=== PATIENT | male | born 1950 | race Caucasian/White ===

== ENCOUNTER 2025-04-10 08:34 | Inpatient (IN) | payer MEDICARE, OTHER, SELFPAY ==
[2025-04-10] VITALS (16 sets, daily range): BP systolic 125–176; BP diastolic 75–103; PULSE 68–95; RESP 13–16; TEMP 36.1–36.7; O2SAT 91–97; BMI 27.7
--- NOTE | 2025-04-10 08:49 | CT_ITS ---
PROCEDURE: ABDOMEN/PELVIS W IV CONT ONLY 04/10/2025 REASON FOR EXAM: RLQ ABDOMINAL PAIN TECHNIQUE: Procedure Code: [id number] Modality: CT Procedure: ABDOMEN/PELVIS W IV CONT ONLY Coronal and Sagittal reconstruction series were provided. CONTRAST: Isovue 300 VOLUME: 100 mL One or more dose reduction techniques were used (e.g., Automated exposure control, adjustment of the mA and/or kV according to patient size, use of iterative reconstruction technique. RADIATION DOSE SUMMARY: CTDlvol: 17.3 mGy DLP: 953.17 mGycm COMPARISON: None FINDINGS: Lung bases: The lung bases are clear. No coronary artery calcification is seen. Liver: Multiple hepatic cysts are seen. The largest cyst measures 9.3 cm by 9.7 cm. This is in the lower portion of the right lobe of the liver. Gallbladder: Unremarkable. Spleen: Scattered calcified granulomas. The spleen is nonenlarged. Pancreas: Normal size without evidence of mass surrounding inflammation or ductal dilation. Adrenals: Unremarkable Kidneys: Normal renal sizes. No hydronephrosis. Bladder: Unremarkable. Prosthetic hypertrophy. Calcification of the prostate with indentation of the bladder base. Bowel: Dilated small bowel loops. Bowel loops are fluid-filled due to a hernia in the right inguinal canal containing small bowel loops. The stomach is fluid-filled. Appendix: Unremarkable Lymph nodes: Unremarkable. Vasculature: Mild diffuse atherosclerotic calcifications are noted. Peritoneum / Retroperitoneum: Unremarkable Bones: Degenerative changes of the spine. CT/Abdomen/Pelvis W IV Cont ONLY IMPRESSION: Small-bowel obstruction due to right inguinal hernia. Hepatic cysts. Prosthetic enlargement with the prostatic calcification. Reading Location: [place] [address]
--- NOTE | 2025-04-10 08:51 | ED.VIS.GI ---
HPI HPI - GI History of Present Illness Chief Complaint: Abd Pain Detail of Chief Complaint: Abdominal pain Informant: patient Narrative Narrative: Patient presents with right-sided lower abdomen pain that started 3 days ago. She has had nausea and few bouts of vomiting yesterday. Rates the pain 5-7 out of 10. Denies fever. Denies blood in the stool or black tarry stool. Tells me he had a right inguinal hernia repair about 15 years ago with mesh. Otherwise has no medical history. Patient not anticoagulated PFSH PFSH Home Medications Medication Instructions Recorded Last Taken Type acetaminophen 325 mg tablet (Pain 650 mg PO Q4H PRN fever or pain 04/10/25 04/09/25 History Relief (acetaminophen)) ibuprofen 200 mg tablet (Motrin IB) 400 mg PO Q8H PRN fever or pain 04/10/25 Unknown History Allergy/AdvReac Type Severity Reaction Status Date / Time No Known Allergies Allergy Verified 04/10/25 08:36 ROS ROS ED Review of Systems ROS Unobtainable: other Constitutional Constitutional ED: Reports lethargy; Denies chills, fever(s), sweats or weight loss Eyes Eyes: Denies blurry vision, change in vision or diplopia ENT ENT ED: Denies rhinorrhea or sore throat Cardiovascular Cardiovascular: Denies chest pain, orthopnea or racing heartbeat Respiratory/Chest Respiratory/Chest: Denies cough, dyspnea, dyspnea on exertion, orthopnea or sputum Gastrointestinal Gastrointestinal: Reports abdominal pain, nausea and vomiting; Denies diarrhea Genitourinary Genitourinary ED: Denies dysuria, hematuria or urinary frequency Musculoskeletal Musculoskeletal: Denies arthralgias, back pain, myalgias or neck pain Integumentary Denies abscess, Abrasions or rash Neurologic Neurologic: Denies headache(s) or weakness Psychiatric Psychiatric: Denies anxiety, depression or suicidal thoughts Endocrine Endocrinology: Denies polydipsia, polyphagia or polyuria Hematologic/Lymphatic Hematologic/Lymphatic: Denies easy bleeding, easy bruising or lymphadenopathy Allergic/Immunologic Allergic/Immunologic ED: Denies mouth swelling, tongue swelling or urticaria EXAM Physical Exam Const Vital Signs: 04/10/25 08:35 Temperature 98.1 F Temperature Source Oral Pulse Rate 95 Respiratory Rate 16 Blood Pressure 125/84 H Blood Pressure Mean 97 Pulse Ox 96 Oxygen Delivery Method Room Air Positive well nourished and well developed General Appearance ED: well developed and NAD HEENT Reports TM's clear and moist mucous membranes normocephalic and atraumatic; Negative for trauma or tenderness Tympanic Membrane ED: Yes TM's clear Eyes PERRL and EOMs intact bilaterally General Eye ED: Negative for pale conjunctiva or scleral icterus Neck no lymphadenopathy, supple and no JVD General: Negative for tenderness Chest Wall inspection of chest normal and palpation of chest normal Chest: Negative for tenderness Resp normal respiratory effort and clear to auscultation bilaterally Effort and Inspection: Negative for respiratory distress or pain with movement Auscultation: Negative for rhonchi, wheezes or diminished lung sounds Cardio regular rate, regular rhythm, S1 normal heart sound, S2 normal heart sound and no murmurs Peripheral Pulses: pulses 2+ throughout GI normal to inspection, nondistended, normoactive bowel sounds, soft to palpation, non-distended and no masses GI Narrative: Patient has fullness to the right inguinal area that is very tender to palpation. No erythema or warmth noted. No discoloration to the skin noted. Testicles are nontender. Back/Spine no CVA tenderness and no thoracic nor lumbar tenderness Extremity normal to inspection General Extremety ED: Negative for edema General Extremity: Negative for edema Neuro oriented x3, CN's II-XII intact bilaterally, no sensory deficits noted and gait normal Sensorium / Orientation: awake, alert, oriented to person, oriented to place and oriented to time Motor Exam: strength 5/5 throughout and strength abnormal Psych mental status grossly normal Skin no rashes or lesions noted and no wounds MDM MDM MDM Narrative Medical decision making narrative: Patient presents with right-sided abdominal pain x 3 days. He has what appears to be fullness in the right normal area with concern for incarcerated little hernia. Initially unable to reduce the mass. IV line established. Was marked with morphine and Zofran. CBC with differential count 13.5 with hemoglobin of 18.3 and plate count of 227. Chemistries unremarkable. Lactate elevated 2.7. CT with IV contrast showed incarcerated right inguinal hernia containing small bowel with small bowel obstruction. Discussed case with Dr. Cruz who is the general surgeon on-call who will evaluate patient. Patient will likely require surgical intervention. Lab Data Attestation: I reviewed the patient's lab results. Labs: Laboratory Results - last 24 hr 04/10/25 04/10/25 08:45 08:55 WBC 13.5 H RBC 5.69 Hgb 18.3 H* Hct 51.2 MCV 90.0 MCH 32.2 H MCHC 35.7 RDW Std Deviation 40.7 RDW Coeff of Madhu 12.5 Plt Count 227 MPV 11.4 Immature Gran % (Auto) 0.400 Neut % (Auto) 74.3 H Lymph % (Auto) 14.8 L [place] % (Auto) 9.8 Eos % (Auto) 0.3 Baso % (Auto) 0.4 Absolute Neuts (auto) 10.0 H Absolute Lymphs (auto) 1.99 Nucleated RBC % 0 Sodium 136 Potassium 4.4 Chloride 97 L Carbon Dioxide 24.0 Anion Gap 15 BUN 24 H Creatinine 1.20 Est GFR (MDRD) Non-Af 64 BUN/Creatinine Ratio 19.8 Glucose 153 H Lactic Acid 2.7 H* Calcium 10.4 Radiography Diagnostic Testing: Clinical Impression(s) from Imaging Studies Abdomen/Pelvis CT 04/10/25 08:49 IMPRESSION: Small-bowel obstruction due to right inguinal hernia. Hepatic cysts. Prosthetic enlargement with the prostatic calcification. Reading Location: [facility] Discharge Plan Dx/Rx/DC Orders Clinical Impression: SBO (small bowel obstruction), Incarcerated right inguinal hernia Disposition Disposition: Acute Care Hospital [facility]
[2025-04-10] MEDS: 0.9% Normal Saline (1000mL) 1,000 ML 125 ML IV (09:02)
[2025-04-10 09:05] LABS: Hematocrit 51.2 % (40-54); Immature Granulocytes Count 0.060 X10^3/uL (0.0-0.0); Mean Corp Hgb Conc 35.7 g/dL (32-36); Mean Corpuscular Volume 90.0 fL (80-94); Mean Platelet Vol. 11.4 fl (6.2-12.0); NRBC Flagged by Analyzer 0 % (0-5); Platelet Count 227 K/mm3 (150-450); RBC Distribution Width CV 12.5 % (11.6-14.6); RBC Distribution Width SD 40.7 fl (35.1-43.9); Red Blood Count 5.69 M/mm3 (4.6-6.2); White Blood Count 13.5 K/mm3 (4.4-11.0)
[2025-04-10 09:08] LABS: Hemoglobin 18.3 g/dL (13.0-16.5)
[2025-04-10 09:27] LABS: Anion Gap 15 (5-15); BUN 24 mg/dL (4-19); BUN/Creat Ratio 19.8 RATIO (10-20); Calcium,Total 10.4 mg/dL (7.6-11.0); Carbon Dioxide 24.0 mmol/L (21.0-32.0); Chloride 97 mmol/L (98-108); Glucose 153 mg/dL (70-99); Potassium 4.4 mmol/L (3.3-5.1)
--- NOTE | 2025-04-10 10:00 | HP.PCM.SX_ITS ---
HPI - General HPI Narrative BELA TURK, is a 74 M who presents with abdominal pain. Patient has been having abdominal pain and vomiting since Thursday. Patient notes right groin pain. It radiates down his leg. Patient does note that he is nauseous currently. [facility] Home Medications Medication Instructions Recorded Last Taken Type acetaminophen 325 mg tablet (Pain 650 mg PO Q4H PRN fe marcin or pain 04/10/25 04/09/25 History Relief (acetaminophen)) ibuprofen 200 mg tablet (Motrin IB) 400 mg PO Q8H PRN fever or pain 04/10/25 Unknown History Allergy/AdvReac Type Severity Reaction Status Date / Time No Known Allergies Allergy Verified 04/10/25 08:36 ROS Constitutional Constitutional: Reports anorexia; Denies fatigue or fever(s) Eyes Eyes: Denies blurry vision ENT HEENT: Denies abnormal hearing Cardiovascular Cardiovascular: Denies chest pain Respiratory/Chest Respiratory/Chest: Denies cough or dyspnea Gastrointestinal Gastrointestinal: Reports abdominal pain, nausea and vomiting; Denies constipation Genitourinary Genitourinary: Denies change in urinary stream Musculoskeletal Musculoskeletal: Denies abnormal gait Integumentary Integumentary: Denies jaundice Neurologic Neurologic: Denies abnormal gait Psychiatric Psychiatric: Denies anxiety Vital Signs Vital Signs Vital Signs: 04/10/25 08:35 Temperature 98.1 F Temperature Source Oral Pulse Rate 95 Respiratory Rate 16 Blood Pressure 125/84 H Blood Pressure Mean 97 Pulse Ox 96 Oxygen Delivery Method Room Air Physical Exam Const oriented x3 and no apparent distress Resp normal respiratory effort GI soft to palpation Palpation: tender Positive for other Results Lab / Micro Data 04/10/25 08:45 04/10/25 08:45 Labs: Laboratory Results - last 24 hr 04/10/25 08:45: WBC 13.5 H, RBC 5.69, Hgb 18.3 H*, Hct 51.2, MCV 90.0, MCH 32.2 H, MCHC 35.7, RDW Std Deviation 40.7, RDW Coeff of Madhu 12.5, Plt Count 227, MPV 11.4, Immature Gran % (Auto) 0.400, Neut % (Auto) 74.3 H, Lymph % (Auto) 14.8 L, [place] % (Auto) 9.8, Eos % (Auto) 0.3, Baso % (Auto) 0.4, Absolute Neuts (auto) 10.0 H, Absolute Lymphs (auto) 1.99, Nucleated RBC % 0, Sodium 136, Potassium 4.4, Chloride 97 L, Carbon Dioxide 24.0, Anion Gap 15, BUN 24 H, Creatinine 1.20, Est GFR (MDRD) Non-Af 64, BUN/Creatinine Ratio 19.8, Glucose 153 H, Calcium 10.4 04/10/25 08:55: Lactic Acid 2.7 H* Imaging Radiology Impression Abdomen/Pelvis CT 04/10/25 08:49 IMPRESSION: Small-bowel obstruction due to right inguinal hernia. Hepatic cysts. Prosthetic enlargement with the prostatic calcification. Reading Location: [facility] Assessment & Plan Assessment/Plan (1) Incarcerated right inguinal hernia: (2) SBO (small bowel obstruction): PLAN: Plan The patient has an incarcerated right inguinal hernia causing small bowel obstruction. I discussed this with him in detail. I discussed robotic assisted laparoscopic repair as the patient has had open repair in the past. I discussed the procedure in detail as well as the risks including but not limited to bleeding, infection, injury to other organ such as the bowel, bladder, blood supply to the testicle. I also discussed the possibility of having to open and perform a bowel resection if there is any necrosis of the bowel. I recommend the patient have an NG tube placed for decompression before surgery. Abilio Cruz MD Pager: [facility] [address] [place] [address], [address] [place] [address] Office:
[2025-04-10 10:22] LABS: Mucous, Urine 0 SEEN /hpf (<or=2+); Red Blood Cells-Urine 0 SEEN /hpf (0-5); Squamous Epithelial Cells - UA 0 SEEN /hpf (0-5)
[2025-04-10 10:36] LABS: Color, Urine Yellow (Yellow); Glucose, Dipstick Normal (Normal); Ketone-Dipstick 15 mg/dl (Negative); Leukocyte Esterase-Dipstick 25 /ul (Negative); Nitrite-Dipstick Negative (Negative); Occult Blood-Urine 10 /ul (Negative); Protein-Dipstick 30 mg/dl (Negative); Specific Gravity, Urine 1.015 (1.002-1.030); Urine Bilirubin Dipstick Negative (Negative)
--- NOTE | 2025-04-10 10:50 | RAD_ITS ---
PROCEDURE: ABDOMEN SINGLE VIEW (PORTABLE) 04/10/2025 REASON FOR EXAM: NG PLACEMENT TECHNIQUE: Procedure Code: RADABD_P Modality: DX Procedure: ABDOMEN SINGLE VIEW (PORTABLE) COMPARISON: None FINDINGS: Bowel gas: Air-filled loops of small and large bowel throughout all 4 quadrants of the abdomen consistent with ileus. Calcifications: No suspicious calcifications noted. However, 1 could be obscured by the overlying bowel gas and stool Bones: Degenerative bony changes Other: NG tube tip in the body of the stomach RAD/Abdomen Single View (Portable) IMPRESSION: NG tube tip in the body of the stomach Ileus Reading Location: [id number]
--- NOTE | 2025-04-10 11:15 | COL_PTH ---
PATIENT: BELA TURK LOC: [facility] U#:[id number] AGE/SX: 74/M ROOM: MN325 RE04/10/[address]: Dr. Abilio Cruz MD : 1950 BED: 1 DIS: 04/14/2025 SPEC #: [id number] RECD: 04/10/25 14:16 STATUS: GILLIAN BRANCHRocco #: [id number] RUSSELL: 04/10/25 11:[address]: Abilio Cruz DEPT: SURGICAL PATHOLOGY RECD BY: Butch De Anda ENTERED: 04/10/25 14:25 SP TYPE: COLON OTHR DR: No Primary Care Phys Tissues: A - Colon, NOS Procedures: Surgery Specimen Level V HEADER OPERATION: Laparoscopic robotic inguinal hernia, bowel resection PRE-OP DIAGNOSIS: Incarcerated right inguinal hernia, small bowel obstruction TISSUE SUBMITTED: A- Small bowel segment MICROSCOPIC DIAGNOSIS A. 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 - Serosal adhesions with acute serositis. - Focal mucosal necrosis of end resection margins, with focal prominent mucosal lymphoid tissue IHCs 04/19 pm MICROSCOPIC DESCRIPTION Slides are reviewed. All matched controls reacted appropriately. These tests were developed and their performance characteristics determined by [facility]. They may not have been cleared or approved by the U.S. Food and Drug Administration. The FDA has determined that such clearance or approval is not necessary. The above immunohistochemical markers are viewed by the Pathologist. GROSS DESCRIPTION A. Received in formalin labeled with the patient's name and date of . Designated as "small bowel segment" is an 8.8 cm in length by 2.5 cm in diameter page-pink to red unoriented segment of bowel with focal dense adhesions and an area of stricture, 1.5 cm in diameter, located 2.8 cm from the closest stapled margin; the stapled margins are differentially inked (black/orange). Opening reveals minimal amount of yellow-green, somewhat tenacious material within the lumen. The bowel mucosa is page and granular with a central, circumferential area of submucosal congestion. Definitive mass lesions are not grossly appreciated. Also received within the container is a 7.8 x 1.3 x 7 cm focally stapled, irregular portion of mucosa and 2 stapled portions of mucosa, 0.8 cm and 1.2 cm in length by 1.0-1.4 cm in diameter. The stapled portions of mucosa are differentially inked (green/blue). Electrocardiograph Technician sections are submitted A1: Stapled margins, shaved, charter representative (black/orange)A2: Stricture A3: Serosal adhesionsA4: Submucosal congestionA5: Irregular portion of mucosaA6: Stapled portions of mucosa, shaved, charter representative (blue/green) [place] 04/10/2025 CPT:78149,04342, [id number]
--- NOTE | 2025-04-10 11:20 | PRE.ANES_ITS ---
ASA Classification* ASA Classification ASA Classification: 2 (Denies all PMHx. HTNsive on my assessment. Incarcerated (R) hernia ) Assessment & Plan Anesthesia* Anesthesia Assessment Anesthesia Assessment: Discussed sedation and/or anesthesia options, risks, benefits, and alternatives with patient/parents/legal guardian/POA. Questions invited. The patient/parents/legal guardian/POA seems to understand and agrees to proceed with anesthesia plan. Reviewed the physical assessment, medical history, allergy history and patient home medications list prior to surgery/procedure/anesthetic and documented any changes. Performed airway and anesthesia risk assessments. Anesthesia Type Anesthesia Type: General History Source History Obtained from:: Patient and Chart Anesthesia Focused Assessment* Temperature: 98.1 F Pulse Rate: 77 Blood Pressure: 159/101 Respiratory Rate: 13 Pulse Ox: 93 Oxygen Delivery Method: Room Air Airway Assessment Mouth opens: >3 cm Mallampati Score: II Teeth Condition: Intact Neck Range of motion (ROM): Full ROM Labs Anesthesia Preop lab: CBC WBC, (4.4-11.0) 13.5 K/mm3 H Today, 08:45 RBC, (4.6-6.2) 5.69 M/mm3 Today, 08:45 Hgb, (13.0-16.5) 18.3 g/dL H* Today, 08:45 Hct, (40-54) 51.2 % Today, 08:45 Plt Count, (150-450) 227 K/mm3 Today, 08:45 CHEMISTRY Potassium, (3.3-5.1) 4.4 mmol/L Today, 08:45 Sodium, (133-145) 136 mmol/L Today, 08:45 BUN, (4-19) 24 mg/dL H Today, 08:45 Creatinine, (0.70-1.20) 1.20 mg/dL Today, 08:45 Glucose, (70-99) 153 mg/dL H Today, 08:45 COAG Pre-Assessment Diagnosis/Proposed Procedure Planned Operative Procedure(s): hernia repair; see surgeon note Anesthesia History Anesthesia History - bevel face stoner and polisher: Anesthesia History - bevel face stoner and polisher Hx Hospitalization Any Problems With Anesthesia Cholinesterase deficiency You/Your Family Experience fever (hyperthermia) with Relationship Recent Exposure to Contagious Disease Does patient have nerve stimulator Patient instructed to have device shut off --Does patient have Pacemaker or ICD? When Was Last Pacemaker Check QUESTION #4 FULL TEXT: You/Your Family Experience fever (hyperthermia) with Anesthesia Last Oral Intake Last Oral intake: Last Oral Intake NPO since Meds taken in AM with sips of water? Meds patient instructed to take am of surgery PONV PONV - bevel face stoner and polisher: PONV - bevel face stoner and polisher Female HX of Motion Sickness HX of N/V After Surgery Non-Smoker Duration of Surgery greater than 60 minutes Number of Risk Factors PONV Score Height & Weight Height & Weight: Anesthesia: Height & Weight Height 5 ft 8 in 04/10/25 08:35 Weight: 82.8 kg 04/10/25 10:08 Body Mass Index (BMI) 27.7 04/10/25 10:08 Respiratory Assessment Respiratory Assessment - bevel face stoner and polisher: Respiratory Tract Infection Hx - bevel face stoner and polisher Hx Respiratory Tract Infection STOP Sleep Apnea STOP Sleep Apnea - bevel face stoner and polisher: STOP Sleep Apnea - bevel face stoner and polisher Hx Hypertension Hx Sleep Apnea CPAP BIPAP Do you snore loudly (louder than talking or can be heard Do you often feel tired/ fatigued/ sleepy during daytime? Has anyone observed you stop breathing during sleep? STOP Results QUESTION #5 FULL TEXT : Do you snore loudly (louder than talking or can be heard through closed doors)? Tobacco Use History Tobacco Use History - bevel face stoner and polisher: Tobacco Use History - bevel face stoner and polisher Tobacco Use Smoking Status Never smoker 04/10/25 10:09 Hx Tobacco Use Years Smoking Packs Smoked per Day Smoking Cessation Date was within the last 15 years Hx Smoking Cessation Date Hx Smoking Cessation Counseling Hematologic Medial History Hematologic Hx - bevel face stoner and polisher: Hematologic Medical Hx - mold hoister Hx of Blood Transfusion Hx of Transfusion in last 3 Months Date of Last Transfusion (if within last 3 months) Ever experience any problems with transfusion(s)? Specify any problems Hx of Preganancy in last 3 Months Nurse Filling Out Transfusion & Questions: Date: Time: Patient unable to answer at this time (ie. confused, unrespo /Reproduction History /Reproductive History - bevel face stoner and polisher: /Reproductive Hx- bevel face stoner and polisher Hx Now Gestational Age (in weeks): EDC: Hx Hx Para Hx Section SAB Does the father of the baby or his family experience fever w Father of the baby Malignant Hypertension history comment Active Medications Active Medications: Current Medications Generic Name Dose Route Start Last Admin Trade Name Freq PRN Reason Stop Dose Admin Sodium Chloride 1,000 mls @ 125 mls/hr 04/10/25 08:50 04/10/25 09:02 IV 125 mls/hr .Q8H WOOD Administration Cefotetan Disodium 2 gm/ 100 mls @ 200 mls/hr 04/10/25 11:11 Sodium Chloride IV 04/10/25 11:40 INTRAOP ONE Lactated Ringer's 1,000 mls @ 15 mls/hr 04/10/25 11:15 IV .Q48H WOOD PFSH Home Medications Medication Instructions Recorded Last Taken Type acetaminophen 325 mg tablet (Pain 650 mg PO Q4H PRN fe marcin or pain 04/10/25 04/09/25 History Relief (acetaminophen)) ibuprofen 200 mg tablet (Motrin IB) 400 mg PO Q8H PRN fever or pain 04/10/25 Unknown History Allergy/AdvReac Type Severity Reaction Status Date / Time No Known Allergies Allergy Verified 04/10/25 08:36 Social History Smoking Status: Never smoker Review of Systems (Anesthesia) ROS Narrative System reviewed and no additional complaints, except as documented. Physical Exam Const alert, oriented x3 and average body habitus Resp normal respiratory effort, normal air movement and clear to auscultation bilaterally Cardio regular rate, regular rhythm, no murmurs and diaphoretic
[2025-04-10] MEDS: Lidocaine 1% (5 ml sdv) 5 ML Vial IV (12:17)
[2025-04-10] MEDS: fentaNYL 100 MCG/2 ML Ampul IV (12:18)
[2025-04-10 13:03] LABS: Reflex Lactate? Y
--- NOTE | 2025-04-10 13:36 | OP.PCM_ITS ---
Operative Report (Standard) Operative Information Date of Procedure: 04/10/25 Pre-Operative Diagnosis: Incarcerated right inguinal hernia Post-Operative Diagnosis: Strangulated right inguinal hernia with bowel necrosis Surgery/Procedure Performed: Exploratory laparoscopy converted to open with small bowel resection and anastomosis assistant manager pt: Yes Journeyman Lineman: Emma Li Tasks completed by machine operator assistant: Opening & closing and Retracting Type of Anesthesia: General/Regional RN Documented Start/Stop Times: Operation Date: 04/10/25 11:15 Case Time Into Pre-Op 04/10/25 11:09 Out of Pre-Op 04/10/25 12:12 Anesthesia Start 04/10/25 12:15 Into Room 04/10/25 12:15 Procedure Start 04/10/25 12:38 Procedure End 04/10/25 13:35 Procedure Start Time: 12:38 Procedure Stop Time: 13:35 Select all DRAINS/GRAFTS/IMPLANTS that apply: None Estimated Blood Loss: 10 Specimen collected: Yes Description of specimen(s) removed: Small bowel segment Description of surgery: Patient was brought to the operating room and general anesthesia was induced. The abdomen was prepped and draped in usual sterile fashion. A midline incision was made superior to the umbilicus and deepened to the fascia which was elevated and incised. A 12 mm port was placed into the abdomen and the abdomen is insufflated to 15 mmHg. Patient was placed in Trendelenburg position. The hernia was reduced. The loop of small bowel that was reduced from the hernia appeared necrotic. It was at this point we decided not to repair the hernia for fear of contamination of the mesh and to only resect the small bowel. The midline incision was lengthened inferiorly and a wound protector was placed. The small bowel was delivered through the incision. The small bowel was divided proximal and distal to the ischemic area. The LigaSure impact was used to take down the mesentery. Next the corner of each staple line was removed and the GONZÁLEZ 75 stapler was used to create an anastomosis in a [id number] functional end-to-end fashion. The staple line appeared hemostatic. The enterostomy was closed with a 60 TX stapler. There was good hemostasis. A crotch stitch was placed with 3-0 silk. The bowel was returned to the abdomen and was irrigated and suctioned. The fascia was closed with a #1 PDS suture starting from the top and bottom meeting in the middle. The skin was closed with interrupted 4-0 Monocryl suture. Steri-Strips and bandages were applied. Patient was taken the PACU in stable condition and tolerated the procedure well. Surgical Findings: Small bowel obstruction and ischemia due to right inguinal hernia. Patient will need subsequent right inguinal hernia repair with mesh Complications Complications: No Admit VTE Documentation VTE Mechan Device Prophylaxis: SCD's
[2025-04-10] MEDS: Lactated Ringers 1,000 ML 15 ML IV (14:04)
--- NOTE | 2025-04-10 14:59 | PCM.POST.ANE ---
Anesthesia: Postop Eval I Current Vital Signs Temperature: 97.2 F Pulse Rate: 68 Blood Pressure: 164/103 Respiratory Rate: 16 Pulse Ox: 91 Oxygen Delivery Method: Room Air Assessment Airway patent: Yes Spontaneous unlabored respirations: Yes Mental status: Awake and Calm nausea: No Vomiting: No Anesthesia Complication: No Fluid Hydration Crystalloid volume administer (ml): 800 Total IV fluid infused: 800 Progress Note Anesthesia document: Postop Eval 1 completed: Yes
[2025-04-10] MEDS: 0.9% Normal Saline (1000mL) 1,000 ML 100 ML IV (15:50)
--- NOTE | 2025-04-10 16:39 | POSTOPAN2_ITS ---
Anesthesia Postop Eval I Sum Postop Eval Completion status Anesthesia document: Postop Eval 1 completed: Yes Anesthesia Postop Eval I Summary Anesthesia Postop Eval I Summary: Anesthesia Postop Eval I: Assessment Summary Airway patent Yes 04/10/25 15:01 TRAIN OPERATIONS [email or web address] Spontaneous unlabored Yes 04/10/25 15:01 TRAIN OPERATIONS MANAGER.[email or web address] respirations Mental status Awake,Calm 04/10/25 15:01 TRAIN OPERATIONS MANAGER.JDEF nausea No 04/10/25 15:01 TRAIN OPERATIONS MANAGER.[email or web address] Vomiting No 04/10/25 15:01 TRAIN OPERATIONS MANAGER.[email or web address] Anesthesia Postop Eval I: Fluid Summary Crystalloid volume administer 800 04/10/25 15:01 TRAIN OPERATIONS MANAGER.JDEF (ml) Colloids volume administered ( ml) Blood Product volume administered (ml) Total IV fluid infused 800 04/10/25 15:01 TRAIN OPERATIONS MANAGER.JDEF Anesthesia Postop Eval I: Summary Notes Anesthesia Complication No 04/10/25 15:01 TRAIN OPERATIONS MANAGER.JDEF Anesthesia Complication Comment: Post-operative progress note Anesthesia: Postop Eval II Evaluation Mental status: Awake Pain Level: 0 nausea: No Vomiting: No Complications Anesthesia Complication: No
--- NOTE | 2025-04-10 16:39 | PCM.POSTANE2 ---
Anesthesia Postop Eval I Sum Postop Eval Completion status Anesthesia document: Postop Eval 1 completed: Yes Anesthesia Postop Eval I Summary Anesthesia Postop Eval I Summary: Anesthesia Postop Eval I: Assessment Summary Airway patent Yes 04/10/25 15:01 WORKERS COMPENSATION ATTORNEY.[email or web address] Spontaneous unlabored Yes 04/10/25 15:01 WORKERS COMPENSATION ATTORNEY.JDEF respirations Mental status Awake,Calm 04/10/25 15:01 WORKERS COMPENSATION ATTORNEY.JDEF nausea No 04/10/25 15:01 WORKERS COMPENSATION ATTORNEY.JDEF Vomiting No 04/10/25 15:01 WORKERS COMPENSATION ATTORNEY.JDEF Anesthesia Postop Eval I: Fluid Summary Crystalloid volume administer 800 04/10/25 15:01 WORKERS COMPENSATION ATTORNEY.JDEF (ml) Colloids volume administered ( ml) Blood Product volume administered (ml) Total IV fluid infused 800 04/10/25 15:01 WORKERS COMPENSATION ATTORNEY.JDEF Anesthesia Postop Eval I: Summary Notes Anesthesia Complication No 04/10/25 15:01 WORKERS COMPENSATION ATTORNEY.JDEF Anesthesia Complication Comment: Post-operative progress note Anesthesia: Postop Eval II Evaluation Mental status: Awake Pain Level: 0 nausea: No Vomiting: No Complications Anesthesia Complication: No
[2025-04-10] MEDS: 0.9% Saline Lock 10 ML Syringe IV (19:02)
[2025-04-11] MEDS: 0.9% Normal Saline (1000mL) 1,000 ML 100 ML IV ×3 (01:09→20:53)
[2025-04-11 02:56] VITALS: BP 147/96; PULSE 75; RESP 16; TEMP 36.6; O2SAT 95
[2025-04-11 06:41] VITALS: BP 132/76; PULSE 82; RESP 16; TEMP 36.6; O2SAT 95
[2025-04-11 06:45] LABS: Hematocrit 43.6 % (40-54); Hemoglobin 14.9 g/dL (13.0-16.5); Immature Granulocytes Count 0.020 X10^3/uL (0.0-0.0); Mean Corp Hgb Conc 34.2 g/dL (32-36); Mean Corpuscular Volume 93.4 fL (80-94); Mean Platelet Vol. 11.3 fl (6.2-12.0); NRBC Flagged by Analyzer 0 % (0-5); Platelet Count 170 K/mm3 (150-450); RBC Distribution Width CV 13.0 % (11.6-14.6); RBC Distribution Width SD 44.3 fl (35.1-43.9); Red Blood Count 4.67 M/mm3 (4.6-6.2); White Blood Count 5.5 K/mm3 (4.4-11.0)
[2025-04-11 07:17] LABS: Anion Gap 9 (5-15); BUN 20 mg/dL (4-19); BUN/Creat Ratio 18.6 RATIO (10-20); Calcium,Total 8.2 mg/dL (7.6-11.0); Carbon Dioxide 24.4 mmol/L (21.0-32.0); Chloride 104 mmol/L (98-108); Estimated Creatinine Clearance 64.25 ml/min (50-250); Glucose 115 mg/dL (70-99); Potassium 4.6 mmol/L (3.3-5.1)
--- NOTE | 2025-04-11 07:37 | PN.SURG_ITS ---
Subjective Subjective Patient reports he is comfortable. He is says he passed minimal flatus overnight. Objective Data Objective Data Vital Signs: Vital Signs Temp Pulse Resp BP Pulse Ox O2 Del Method O2 Flow Rate 97.9 F 82 16 132/76 H 95 Nasal Cannula 2 04/11/25 06:41 04/11/25 06:41 04/11/25 06:41 04/11/25 06:41 04/11/25 06:41 04/11/25 06:41 04/11/25 06:41 Oxygen Flow Rate (L/min) 2 Oxygen Delivery Method Nasal Cannula Weight: 182 lb 8 oz Body Mass Index (BMI) 27.7 Intake & Output: Intake and Output for Last 24 Hours 04/09/25 04/10/25 04/11/25 23:59 23:59 23:59 Intake Total 1764.83 / 1764.83 931.67 / 931.67 Output Total 100 / 100 Balance 1759.83 / 1759.83 831.67 / 831.67 Lab / Micro Data 04/11/25 05:57 04/11/25 05:57 Labs: Laboratory Results - last 24 hr 04/10/25 08:45: WBC 13.5 H, RBC 5.69, Hgb 18.3 H*, Hct 51.2, MCV 90.0, MCH 32.2 H, MCHC 35.7, RDW Std Deviation 40.7, RDW Coeff of Madhu 12.5, Plt Count 227, MPV 11.4, Immature Gran % (Auto) 0.400, Neut % (Auto) 74.3 H, Lymph % (Auto) 14.8 L, [place] % (Auto) 9.8, Eos % (Auto) 0.3, Baso % (Auto) 0.4, Absolute Neuts (auto) 10.0 H, Absolute Lymphs (auto) 1.99, Nucleated RBC % 0, Sodium 136, Potassium 4.4, Chloride 97 L, Carbon Dioxide 24.0, Anion Gap 15, BUN 24 H, Creatinine 1.20, Est GFR (MDRD) Non-Af 64, BUN/Creatinine Ratio 19.8, Glucose 153 H, Calcium 10.4 04/10/25 08:55: Lactic Acid 2.7 H* 04/10/25 10:15: Urine Color Yellow, Urine Clarity Clear, Urine pH 5.0, Ur Specific [place] 1.015, Urine Protein 30 H, Urine Glucose (UA) Normal, Urine Ketones 15 H, Urine Occult Blood 10 H, Urine Nitrite Negative, Urine Bilirubin Negative, Urine Urobilinogen 1 H, Ur Leukocyte Esterase 25 H, Urine RBC 0 SEEN, Urine WBC 0 SEEN, Ur Squamous Epith Cells 0 SEEN, Urine Bacteria 0 SEEN, Urine Mucus 0 SEEN 04/10/25 13:51: Lactic Acid 1.7 04/11/25 05:57: WBC 5.5, RBC 4.67, Hgb 14.9, Hct 43.6, MCV 93.4, MCH 31.9, MCHC 34.2, RDW Std Deviation 44.3 H, RDW Coeff of Madhu 13.0, Plt Count 170, MPV 11.3, Immature Gran % (Auto) 0.400, Neut % (Auto) 65.8, Lymph % (Auto) 17.7 L, Trigg % (Auto) 15.1 H, Eos % (Auto) 0.5, Baso % (Auto) 0.5, Absolute Neuts (auto) 3.6, Absolute Lymphs (auto) 0.97, Nucleated RBC % 0, Sodium 138, Potassium 4.6, Chloride 104, Carbon Dioxide 24.4, Anion Gap 9, BUN 20 H, Creatinine 1.09, Estim Creat Clear Calc 64.25, Est GFR (MDRD) Non-Af 72, BUN/Creatinine Ratio 18.6, G lucose 115 H, Calcium 8.2 Radiography Diagnostic Testing: Radiology Impression Abdomen/Pelvis CT 04/10/25 08:49 IMPRESSION: Small-bowel obstruction due to right inguinal hernia. Hepatic cysts. Prosthetic enlargement with the prostatic calcification. Reading Location: [facility]-1 KUB X-Ray 04/10/25 10:50 IMPRESSION: NG tube tip in the body of the stomach Ileus Reading Location: [facility] Physical Exam Const oriented x3 and no apparent distress Resp normal respiratory effort GI soft to palpation and non-tender Assessment & Plan Assessment/Plan (1) Incarcerated right inguinal hernia: (2) SBO (small bowel obstruction): PLAN: Plan The patient has strangulated right inguinal hernia requiring bowel resection yesterday. His NG is clearing up today and I will remove it. Will hold on diet until he is passing more significant flatus. Continue supportive care. Hope to start a diet this afternoon if the patient is passing flatus. Patient will need his right inguinal hernia repaired at a later date. Currently there is no bulging in the right groin. Abilio Cruz MD Pager: [facility] [address] [place] [address] [address] [place] [address] Office:
[2025-04-11 08:00] VITALS: BP 138/82; PULSE 70; RESP 16; TEMP 36.6; O2SAT 94; O2SAT 97
--- NOTE | 2025-04-11 08:12 | NURSING ---
NG taken out at 0800, pt tolerated well, ice chips and mint gum given.
--- NOTE | 2025-04-11 13:39 | CASEMGMT ---
RADHA SALINAS NOTE: Dx: Small bowel ischemia Strata: 1 6 click: 20 No therapy ordered. No CM consult ordered. Medical record reviewed and patient evaluated for identification of discharge planning needs. Patient does not currently demonstrate a need for discharge planning by RN BRAD. CM will continue to be available for any discharge needs that may arise, and intervene as indicated. Reid MONDRAGON RN, CM
--- NOTE | 2025-04-11 13:42 | CASEMGMT ---
RN CM note: No PCP listed in [facility]. RN CM to room. Pt resting in bed. @ bedside. Introduced self and role. Pt verifies that he does not have a PCP, states they are interested in him getting one. They were provided provider director and also [facility] info. Reid ISBELLN RN CM
[2025-04-11 14:26] VITALS: BP 135/79; PULSE 72; RESP 18; TEMP 36.7; O2SAT 97
--- NOTE | 2025-04-11 16:03 | CHAPLAIN ---
Type of Pastoral Visit _x__ Initial Visit ___ Follow-up Visit ___ On-call Visit ___ General Patient Visit ___ Spiritual Assessment ___ Family Conference ___ Bereavement ___ Rapid Response ___ Code Blue ___ Other (describe below) Pastoral Care Referral From ___ Patient _x__ Family ___ Nurse ___ Physician ___ Tax Director ___ Vise Hand ___ Other (describe below) Sacrament/Intervention _x__ Active listening ___ Anointing ___ Catholic ___ Bereavement ___ Communion ___ Emily exploration ___ ___ Life review _x__ Prayer ___ Reconciliation ___ Sacrament of Sick _x__ Supportive presence ___ Wedding ___ Other (describe below) Pastoral Comments
[2025-04-11 20:18] VITALS: O2SAT 97
[2025-04-11 20:53] VITALS: BP 165/88; PULSE 74; RESP 15; TEMP 36.6; O2SAT 95
--- NOTE | 2025-04-11 22:33 | NURSING ---
pt ambulated the full length of the department with slow steady gait noted.
[2025-04-12] VITALS (8 sets, daily range): BP systolic 136–186; BP diastolic 82–108; PULSE 66–78; RESP 15–18; TEMP 36.6–37.2; O2SAT 94–98
[2025-04-12] MEDS: 0.9% Normal Saline (1000mL) 1,000 ML 100 ML IV (07:25)
[2025-04-12 07:30] LABS: Hematocrit 39.2 % (40-54); Hemoglobin 13.1 g/dL (13.0-16.5); Immature Granulocytes Count 0.020 X10^3/uL (0.0-0.0); Mean Corp Hgb Conc 33.4 g/dL (32-36); Mean Corpuscular Volume 94.2 fL (80-94); Mean Platelet Vol. 11.2 fl (6.2-12.0); NRBC Flagged by Analyzer 0 % (0-5); Platelet Count 168 K/mm3 (150-450); RBC Distribution Width CV 12.5 % (11.6-14.6); RBC Distribution Width SD 44.0 fl (35.1-43.9); Red Blood Count 4.16 M/mm3 (4.6-6.2); White Blood Count 6.1 K/mm3 (4.4-11.0)
[2025-04-12 07:50] LABS: Anion Gap 7 (5-15); BUN 16 mg/dL (4-19); BUN/Creat Ratio 18.9 RATIO (10-20); Calcium,Total 8.3 mg/dL (7.6-11.0); Carbon Dioxide 24.8 mmol/L (21.0-32.0); Chloride 108 mmol/L (98-108); Estimated Creatinine Clearance 82.39 ml/min (50-250); Glucose 97 mg/dL (70-99); Potassium 4.4 mmol/L (3.3-5.1)
--- NOTE | 2025-04-12 08:02 | PN.SURG_ITS ---
Subjective Subjective Patient did not have any nausea or vomiting after removal of the NG but he still has not passed any flatus. He says he feels some gas moving around. Objective Data Objective Data Vital Signs: Vital Signs Temp Pulse Resp BP Pulse Ox O2 Del Method O2 Flow Rate 97.9 F 78 15 165/99 H 95 Nasal Cannula 2 04/12/25 04:25 04/12/25 04:25 04/12/25 04:25 04/12/25 04:25 04/12/25 08:01 04/12/25 08:01 04/12/25 08:01 Oxygen Flow Rate (L/min) 2 Oxygen Delivery Method Nasal Cannula Weight: 182 lb 8 oz Body Mass Index (BMI) 27.7 Intake & Output: Intake and Output for Last 24 Hours 04/10/25 04/11/25 04/12/25 23:59 23:59 23:59 Intake Total 1764.83 / 1764.83 2935.00 / 2935.00 1000 / 1000 Output Total 5 / 100 / 200 100 / 100 Balance 1759.83 / 1759.83 2835.00 / 2735.00 900 / 900 Lab / Micro Data 04/12/25 07:11 04/12/25 07:11 Labs: Laboratory Results - last 24 hr 04/12/25 07:11: WBC 6.1, RBC 4.16 L, Hgb 13.1, Hct 39.2 L, MCV 94.2 H, MCH 31.5, MCHC 33.4, RDW Std Deviation 44.0 H, RDW Coeff of Madhu 12.5, Plt Count 168, MPV 11.2, Immature Gran % (Auto) 0.300, Neut % (Auto) 60.2, Lymph % (Auto) 21.4, M flaco % (Auto) 16.3 H, Eos % (Auto) 1.3, Baso % (Auto) 0.5, Absolute Neuts (auto) 3.7, Absolute Lymphs (auto) 1.31, Nucleated RBC % 0, Sodium 139, Potassium 4.4, Chloride 108, Carbon Dioxide 24.8, Anion Gap 7, BUN 16, Creatinine 0.85, Estim Creat Clear Calc 82.39, Est GFR (MDRD) Non-Af 92, BUN/Creatinine Ratio 18.9, Glucose 97, Calcium 8.3 Physical Exam Const oriented x3 and no apparent distress Resp normal respiratory effort GI soft to palpation Palpation: tender Assessment & Plan Assessment/Plan (1) SBO (small bowel obstruction): PLAN: Patient is postoperative day 2 from small bowel resection for strangulated inguinal hernia. This morning he is not passing any gas yet and I will await flatus before starting clear liquid diet. Continue to encourage gum chewing and ambulation. SCDs. Abilio Cruz MD Pager: [facility] [address] [place] [address], [address] [place] [address] Office:
--- NOTE | 2025-04-12 11:00 | CASEMGMT ---
Pt requested RADHA SALINAS speak to her about insurance. She asks if medicare will cover this hospital stay. She is aware pt is in inpatient status. She states pt has a secondary of MMO. Offered for her to speak with PFS, she declines. She denies any further questions at this time.
--- NOTE | 2025-04-12 14:35 | CHAPLAIN ---
Type of Pastoral Visit ___ Initial Visit _x__ Follow-up Visit ___ On-call Visit ___ General Patient Visit ___ Spiritual Assessment ___ Family Conference ___ Bereavement ___ Rapid Response ___ Code Blue ___ Other (describe below) Pastoral Care Referral From ___ Patient _x__ Family ___ Nurse ___ Physician ___ Architectural Sales Consultant ___ Load Planner ___ Other (describe below) Sacrament/Intervention _x__ Active listening ___ Anointing ___ Methodist ___ Bereavement ___ Communion ___ Emily exploration ___ _x__ Life review _x__ Prayer ___ Reconciliation ___ Sacrament of Sick _x__ Supportive presence ___ Wedding ___ Other (describe below) Pastoral Comments RN reported that family had requested a follow up visit today; spouse is in the room and she meets this industrial machine operator and welcomes him to sit and talk with them; pt is quietly resting but later interacts with the conversation; spouse is talkative about different people that are known in common; pt is somewhat frustrated that he has not been able to pass gas which is requirement before he is discharged; spouse expresses emily in God and how there have been 'amazing stories where his people showed up'; both speak of realistic expectations and for the future; pt and spouse welcome prayer and ongoing support
[2025-04-12] MEDS: 0.9% Saline Lock 10 ML Syringe IV (14:45)
[2025-04-13 05:23] VITALS: BP 171/94; PULSE 66; RESP 16; TEMP 37.1; O2SAT 96
--- NOTE | 2025-04-13 05:25 | NURSING ---
doesn't want bp or pain med at this time will talk to when he comes in this am
[2025-04-13 07:08] LABS: Hematocrit 39.7 % (40-54); Hemoglobin 13.7 g/dL (13.0-16.5); Immature Granulocytes Count 0.020 X10^3/uL (0.0-0.0); Mean Corp Hgb Conc 34.5 g/dL (32-36); Mean Corpuscular Volume 91.7 fL (80-94); Mean Platelet Vol. 10.5 fl (6.2-12.0); NRBC Flagged by Analyzer 0 % (0-5); Platelet Count 176 K/mm3 (150-450); RBC Distribution Width CV 12.3 % (11.6-14.6); RBC Distribution Width SD 41.8 fl (35.1-43.9); Red Blood Count 4.33 M/mm3 (4.6-6.2); White Blood Count 6.6 K/mm3 (4.4-11.0)
--- NOTE | 2025-04-13 07:19 | PCM.PN.SRG ---
Subjective Subjective Patient evaluated resting comfortably in bed. He notes nausea this morning. He denies any flatus or bowel movement. He notes pain is controlled. Objective Data Objective Data Vital Signs: Vital Signs Temp Pulse Resp BP Pulse Ox O2 Del Method O2 Flow Rate 98.8 F 66 16 171/94 H 96 Room Air 2 04/13/25 05:23 04/13/25 05:23 04/13/25 05:23 04/13/25 05:23 04/13/25 05:23 04/13/25 05:23 04/12/25 08:01 Oxygen Flow Rate (L/min) 2 Oxygen Delivery Method Room Air Weight: 182 lb 8 oz Body Mass Index (BMI) 27.7 Intake & Output: Intake and Output for Last 24 Hours 04/11/25 04/12/25 04/13/25 23:59 23:59 23:59 Intake Total 2935.00 / 2935.00 1323.33 / 1323.33 Output Total 100 / 200 100 / 100 Balance 2835.00 / 2735.00 1223.33 / 1223.33 Lab / Micro Data 04/13/25 06:58 04/13/25 06:58 Labs: Laboratory Results - last 24 hr 04/12/25 07:11: WBC 6.1, RBC 4.16 L, Hgb 13.1, Hct 39.2 L, MCV 94.2 H, MCH 31.5, MCHC 33.4, RDW Std Deviation 44.0 H, RDW Coeff of Madhu 12.5, Plt Count 168, MPV 11.2, Immature Gran % (Auto) 0.300, Neut % (Auto) 60.2, Lymph % (Auto) 21.4, [place] % (Auto) 16.3 H, Eos % (Auto) 1.3, Baso % (Auto) 0.5, Absolute Neuts (auto) 3.7, Absolute Lymphs (auto) 1.31, Nucleated RBC % 0, Sodium 139, Potassium 4.4, Chloride 108, Carbon Dioxide 24.8, Anion Gap 7, BUN 16, Creatinine 0.85, Estim Creat Clear Calc 82.39, Est GFR (MDRD) Non-Af 92, BUN/Creatinine Ratio 18.9, Glucose 97, Calcium 8.3 04/13/25 06:58: WBC 6.6, RBC 4.33 L, Hgb 13.7, Hct 39.7 L, MCV 91.7, MCH 31.6, MCHC 34.5, RDW Std Deviation 41.8, RDW Coeff of Madhu 12.3, Plt Count 176, MPV 10.5, Immature Gran % (Auto) 0.300, Neut % (Auto) 72.6 H, Lymph % (Auto) 13.0 L, [place] % (Auto) 12.1 H, Eos % (Auto) 1.7, Baso % (Auto) 0.3, Absolute Neuts (auto) 4.8, Absolute Lymphs (auto) 0.86, Nucleated RBC % 0 Physical Exam GI GI Narrative: Abdomen- soft, distended. Incision c/d/i. Hypoactive bowel sounds. Assessment & Plan Assessment/Plan (1) SBO (small bowel obstruction): (2) Incarcerated right inguinal hernia: PLAN: Plan I am following this patient in conjunction with Dr. Alves. He has independently evaluated this patient. Labs reviewed. Plan to switch patient to scheduled Tylenol and Toradol for pain Avoid using narcotic pain medication Patient with an ileus after surgery Continue NPO until bowel function occurs. once passing flatus will increase to clear liquids Encourage ambulation, I.S and gum chewing We will continue to monitor this patient. Charges/Coding Visit Charges Inpatient E&M: 26798 Subs Hosp L1 (post-op; no charge)
[2025-04-13 07:53] LABS: Anion Gap 10 (5-15); BUN 13 mg/dL (4-19); BUN/Creat Ratio 18.0 RATIO (10-20); Calcium,Total 8.9 mg/dL (7.6-11.0); Carbon Dioxide 22.6 mmol/L (21.0-32.0); Chloride 105 mmol/L (98-108); Estimated Creatinine Clearance 87.54 ml/min (50-250); Glucose 99 mg/dL (70-99); Potassium 3.8 mmol/L (3.3-5.1)
[2025-04-13 08:48] VITALS: BP 165/87; PULSE 62; RESP 17; TEMP 36.7; O2SAT 95
[2025-04-13] MEDS: Lactated Ringers 1,000 ML 75 ML IV ×2 (09:23→22:15)
[2025-04-13 09:29] VITALS: BP 163/101; PULSE 65
[2025-04-13 11:33] VITALS: BP 153/83; PULSE 70; RESP 17; TEMP 36.8; O2SAT 92
[2025-04-13 14:51] VITALS: BP 157/94; PULSE 64; RESP 18; TEMP 36.8; O2SAT 95
[2025-04-13 20:26] VITALS: BP 164/88; PULSE 65; RESP 16; TEMP 37.1; O2SAT 95
--- NOTE | 2025-04-13 20:57 | NURSING ---
pt did not want additional bp meds at this time
[2025-04-14 02:30] VITALS: BP 150/83; PULSE 62; RESP 16; TEMP 36.3; O2SAT 95
--- NOTE | 2025-04-14 07:44 | PCM.PN.SRG ---
Subjective Subjective Patient states he is passing a lot of flatus, denies any nausea or vomiting. Objective Data Objective Data Vital Signs: Vital Signs Temp Pulse Resp BP Pulse Ox O2 Del Method O2 Flow Rate 97.4 F L 62 16 150/83 H 95 Room Air 2 04/14/25 02:30 04/14/25 02:30 04/14/25 02:30 04/14/25 02:30 04/14/25 02:30 04/14/25 02:30 04/12/25 08:01 Oxygen Flow Rate (L/min) 2 Oxygen Delivery Method Room Air Weight: 182 lb 8 oz Body Mass Index (BMI) 27.7 Intake & Output: Intake and Output for Last 24 Hours 04/12/25 04/13/25 04/14/25 23:59 23:59 23:59 Intake Total 1323.33 / 1323.33 1405 / 1405 Output Total 100 / 100 Balance 1223.33 / 1223.33 1405 / 1405 Lab / Micro Data 04/14/25 08:09 04/14/25 08:09 Labs: Laboratory Results - last 24 hr 04/13/25 06:58: Sodium 138, Potassium 3.8, Chloride 105, Carbon Dioxide 22.6, Anion Gap 10, BUN 13, Creatinine 0.71, Estim Creat Clear Calc 87.54, Est GFR (MDRD) Non-Af 97, BUN/Creatinine Ratio 18.0, Glucose 99, Calcium 8.9 Physical Exam Resp normal respiratory effort Cardio regular rate GI GI Narrative: Abdomen: Soft, nondistended, tender near incision's dressed clean dry and intact, no peritoneal signs, ecchymosis at incision Assessment & Plan Assessment/Plan (1) SBO (small bowel obstruction): (2) Incarcerated right inguinal hernia: PLAN: Plan Patient is having flatus we will give clears-if tolerates will advance to transitional and likely DC home Continue ambulation Yamile Rg M.D. Pager: [phone] [facility] [address] [place] [address], [facility], [address] [place] [address] Office: [phone]
[2025-04-14 08:15] VITALS: O2SAT 97
[2025-04-14 08:32] LABS: Hematocrit 37.0 % (40-54); Hemoglobin 12.8 g/dL (13.0-16.5); Immature Granulocytes Count 0.050 X10^3/uL (0.0-0.0); Mean Corp Hgb Conc 34.6 g/dL (32-36); Mean Corpuscular Volume 92.0 fL (80-94); Mean Platelet Vol. 10.9 fl (6.2-12.0); NRBC Flagged by Analyzer 0 % (0-5); Platelet Count 200 K/mm3 (150-450); RBC Distribution Width CV 12.2 % (11.6-14.6); RBC Distribution Width SD 41.4 fl (35.1-43.9); Red Blood Count 4.02 M/mm3 (4.6-6.2); White Blood Count 7.6 K/mm3 (4.4-11.0)
[2025-04-14 09:00] VITALS: BP 154/88; PULSE 53; RESP 16; TEMP 36.8; O2SAT 98
[2025-04-14 09:01] LABS: Anion Gap 9 (5-15); BUN 12 mg/dL (4-19); BUN/Creat Ratio 18.1 RATIO (10-20); Calcium,Total 9.1 mg/dL (7.6-11.0); Carbon Dioxide 23.1 mmol/L (21.0-32.0); Chloride 106 mmol/L (98-108); Estimated Creatinine Clearance 87.54 ml/min (50-250); Glucose 91 mg/dL (70-99); Potassium 3.9 mmol/L (3.3-5.1)
--- NOTE | 2025-04-14 10:14 | CASEMGMT ---
6cl=24, pt advanced to clear liquids. Strata 2. RN CM to follow for any dc planning needs.
[2025-04-14] MEDS: Lactated Ringers 1,000 ML 75 ML IV (11:48)
--- NOTE | 2025-04-14 11:48 | DCINST_ITS ---
Discharge Instructions Diet Discharge Diet: - (transitional/low fiber) Activity Discharge Activity: May Not Drive (while taking narcotic pain medications.) May shower in (days): 1 Lifting Restrictions: no lifting >20 lbs x 2 wks, no strenuous exercise for 4 wks Dressing / Incision Call your doctor if your incision/area has: Continuous Slow Oozing, Sudden Increased Bleeding, Increased Pain/ Swelling, Increased Redness, Foul Smelling Discharge and Swelling at the incision site Call your doctor if you observe: Fever of 101 or Higher Remove Dressing in: 2 days Cleanse incision/area with: Soap & Water Additional Dressing/Incision Instructions:: Steri-Strips will fall off in 7 to 1 0 days, if they do not fall off okay to remove after 10 days. Follow Up Care Please Follow Up With: Abilio Cruz MD When: Call the office for a follow-up appointment 2 weeks; after 5 PM and on the weekends call [phone] with any concerns. Test Results: Test results from this visit will be discussed in further detail at your follow- up appointment, if applicable. Discharge Plan Admission Admit Date/Time: 04/10/25 13:40 Attending Provider: Abilio Cruz Primary Care Provider: Care Physician,Yesenia Primary Discharge Orders/Prescriptions Prescriptions: Continued acetaminophen [Pain Relief (acetaminophen)] 325 mg tablet 650 mg PO Q4H PRN (Reason: fever or pain) ibuprofen [Motrin IB] 200 mg tablet 400 mg PO Q8H PRN (Reason: fever or pain) Disposition Disposition (needs filled in before D/C Order can be placed): Home, Self Care
--- NOTE | 2025-04-14 11:50 | DS.PCM_ITS ---
Providers Date of Admission: 04/10/25 Date of Discharge: 04/14/25 Primary Care Physician: No Primary Care Phys Reason For Visit: ABD PAIN Diagnosis Discharge Diagnosis (1) SBO (small bowel obstruction): Status: Acute Code(s): K56.609 - Unspecified intestinal obstruction, unspecified as to partial versus complete obstruction (2) Incarcerated right inguinal hernia: Status: Acute Code(s): K40.30 - Unilateral inguinal hernia, with obstruction, without gangrene, not specified as recurrent Plan Patient is having flatus we will give clears-if tolerates will advance to transitional and likely DC home Continue ambulation Yamile Rg M.D. Pager: [phone] [facility] [address] [place] [address], [facility], [address] [place] [id number] Office: [phone] Medications at Discharge Home Medications acetaminophen 325 mg tablet (Pain Relief (acetaminophen)) 650 mg PO Q4H PRN fever or pain 04/10/25 ibuprofen 200 mg tablet (Motrin IB) 400 mg PO Q8H PRN fever or pain 04/10/25 Hospital Course Operations None (Diagnostic laparoscopy converted to laparotomy small bowel resection) Procedures None Summary of Care Provided Minutes Spent on Discharge: 15 Hospital Course: 74-year-old male presented to the ER with incarcerated right inguinal hernia diagnostic laparoscopy was done which showed necrotic small bowel which was resected and reanastomosed with a small laparotomy incision. Postoperatively patient had a postop ileus. Once patient regained bowel function he was able to be started on a diet which he did tolerate was able to be DC'd home. Patient planned to have his hernia definitively fixed with mesh in the future tentative date May 15. Patient will follow-up with Dr. Cruz in about 2 weeks. Physical Exam GI GI Narrative: Soft, nondistended, and mildly tender at incision healing well clean dry intact with Steri-Strips ecchymosis resolving., No peritoneal signs Weight / BMI Weight Weight: 182 lb 8 oz Body Mass Index (BMI) 27.7 ABG / Lab / Microbiology Data 04/14/25 08:09 04/14/25 08:09 Laboratory: Laboratory Results - last 24 hr 04/14/25 08:09: WBC 7.6, RBC 4.02 L, Hgb 12.8 L, Hct 37.0 L, MCV 92.0, MCH 31.8, MCHC 34.6, RDW Std Deviation 41.4, RDW Coeff of Madhu 12.2, Plt Count 200, MPV 10.9, Immature Gran % (Auto) 0.700, Neut % (Auto) 69.2, Lymph % (Auto) 17.5 L, M flaco % (Auto) 10.1 H, Eos % (Auto) 2.1, Baso % (Auto) 0.4, Absolute Neuts (auto) 5.2, Absolute Lymphs (auto) 1.32, Nucleated RBC % 0, Sodium 138, Potassium 3.9, Chloride 106, Carbon Dioxide 23.1, Anion Gap 9, BUN 12, Creatinine 0.68 L, Estim Creat Clear Calc 87.54, Est GFR (MDRD) Non-Af 99, BUN/Creatinine Ratio 18.1, Glucose 91, Calcium 9.1 D/C Instructions May shower in (days): 1 Call your doctor if your incision/area has: Continuous Slow Oozing, Sudden Increased Bleeding, Increased Pain/ Swelling, Increased Redness, Foul Smelling Discharge and Swelling at the incision site Call your doctor if you observe: Fever of 101 or Higher Cleanse incision/area with: Soap & Water Additional Dressing/Incision Instructions: Steri-Strips will fall off in 7 to 10 days, if they do not fall off okay to remove after 10 days. DC O2, CPAP, BIPAP Needs Home O2 Discharge instructions: No Please Follow Up With: Abilio Cruz MD When: Call the office for a follow-up appointment 2 weeks; after 5 PM and on the weekends call [phone] with any concerns. Meaningful Use Info Meaningful Use Meaningful Use Diagnoses (Choose all that apply): None applicable Discharge Plan Admission Admit Date/Time: 04/10/25 13:40 Attending Provider: Abilio Cruz Primary Care Provider: Care Physician,Yesenia Primary Discharge Orders/Prescriptions Prescriptions: Continued acetaminophen [Pain Relief (acetaminophen)] 325 mg tablet 650 mg PO Q4H PRN (Reason: fever or pain) ibuprofen [Motrin IB] 200 mg tablet 400 mg PO Q8H PRN (Reason: fever or pain) Disposition Disposition (needs filled in before D/C Order can be placed): Home, Self Care
--- NOTE | 2025-04-14 12:40 | PHA.DC.MR.R ---
Pharmacy [place] Med Reconciliation Pharmacy Service has performed discharge medication reconciliation for this patient. The patient's discharge medication list was reviewed for discrepancies and discrepancies were resolved. Medications at Discharge Home Medications acetaminophen 325 mg tablet (Pain Relief (acetaminophen)) 650 mg PO Q4H PRN fever or pain 04/10/25 ibuprofen 200 mg tablet (Motrin IB) 400 mg PO Q8H PRN fever or pain 04/10/25
[2025-04-14 15:11] VITALS: BP 160/83; PULSE 62; RESP 16; TEMP 36.8; O2SAT 98
== END 2025-04-14 15:43 | disposition home or self-care (01) | DRG 329 ==
LOC: ED 10:00 → SDC 10:07 → ACINP 10:08 → SDC 14:12 → MS3 14:12
PROVIDERS: Physician Assistant; Admitting Provider Surgery; Emergency Provider Emergency Medicine; Visit Provider Surgery
DX: K40.30 Unilateral inguinal hernia, with obstruction, without gangrene, not specified as recurrent (principal); K55.019 Acute (reversible) ischemia of small intestine, extent unspecified; K56.609 Unspecified intestinal obstruction, unspecified as to partial versus complete obstruction; K56.7 Ileus, unspecified
CPT/HCPCS: 36415; 74018; 74177; 80048; 81001; 83605; 85025; 88307; 94668; 97802; 99252; 99285; Q9967; A4216; G0463; J0525; J2405

== ENCOUNTER 2025-05-15 09:16 | Day surgery (SDC) | payer MEDICARE, OTHER, SELFPAY ==
--- NOTE | 2025-05-08 09:21 | EKG12_ITS ---
Test Reason : PREOP Blood Pressure : */* mmHG Vent. Rate : 55 BPM Atrial Rate : 55 BPM P-R Int : 134 ms QRS Dur : 82 ms QT Int : 412 ms P-R-T Axes : 11 9 34 degrees QTcB Int : 394 ms Sinus bradycardia Borderline ECG Confirmed by Bud Nails ([id number]), multimedia editor TOMMY POLLOCK ([id number]) on 05/09/2025 8:39:10 AM Referred By: Abilio Cruz Confirmed By: Bud Nails
--- NOTE | 2025-05-08 16:32 | PAT.ANE_ITS ---
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 When Was Last Pacemaker Check QUESTION #4 FULL TEXT: You/Your Family Experience fever (hyperthermia) with Anesthesia Last Oral Intake Last Oral intake: Last Oral Intake NPO since Meds taken in AM with sips of water? Meds patient instructed to take am of surgery PONV PONV - contract manager: PONV - contract manager Female No 05/05/25 08:30 HX of Motion Sickness No 05/05/25 08:30 HX of N/V After Surgery No 05/05/25 08:30 Non-Smoker Yes 05/05/25 08:30 Duration of Surgery greater Yes 05/05/25 08:30 than 60 minutes Number of Risk Factors 2 05/05/25 08:30 PONV Score Moderate Risk 05/05/25 08:30 Height & Weight Height & Weight: Anesthesia: Height & Weight Height 5 ft 8 in 04/26/25 09:38 Respiratory Assessment Respiratory Assessment - contract manager: Respiratory Tract Infection Hx - contract manager Hx Respiratory Tract Infection No 05/05/25 08:30 STOP Sleep Apnea STOP Sleep Apnea - contract manager: STOP Sleep Apnea - contract manager Hx Hypertension No 05/05/25 08:30 Hx Sleep Apnea No 05/05/25 08:30 CPAP BIPAP Do you snore loudly (louder No 05/05/25 08:30 than talking or can be heard Do you often feel tired/ No 05/05/25 08:30 fatigued/ sleepy during daytime? Has anyone observed you stop No 05/05/25 08:30 breathing during sleep? STOP Results Negative 05/05/25 08:30 QUESTION #5 FULL TEXT : Do you snore loudly (louder than talking or can be heard through closed doors)? 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 Specify any problems Hx of Preganancy in last 3 N/A 05/05/25 08:30 Months Nurse Filling Out Transfusion NBU[facility]ER 05/05/25 08:30 & Questions: Date: 05/05/25 05/05/25 08:30 Time: 08:31 05/05/25 08:30 Patient unable to answer at this time (ie. confused, unrespo /Reproduction History /Reproductive History - contract manager: /Reproductive Hx- contract manager Hx Now No 05/05/25 08:30 Gestational Age (in weeks): EDC: Hx Hx Para Hx Section SAB No 05/05/25 08:30 Does the father of the baby or his family experience fever w Father of the baby Malignant Hypertension history comment [facility] Medical History (Updated 05/05/25 @ 08:34 by Linsey Hogue) Wears glasses Non-smoker History of deviated nasal septum Right inguinal hernia Home Medications ?Medication ?Instructions ?Recorded ?Last Taken ?Type acetaminophen 325 mg tablet (Pain 650 mg PO Q4H PRN fe marcin or pain 04/10/25 04/09/25 History Relief (acetaminophen)) ibuprofen 200 mg tablet (Motrin IB) 400 mg PO Q8H PRN fever or pain 04/10/25 Unknown History Allergy/AdvReac Type Severity Reaction Status Date / Time No Known Allergies Allergy Verified 05/05/25 08:29 Surgical History (Updated 05/05/25 @ 08:34 by Linsey Hogue) History of laparoscopy History of hernia repair Social History Smoking Status: Never smoker Audit: Pertinent Findings Pertinent Findings EKG Perinent findings: EKG on 05/08/2025. Await official results. Recommendation Anesthesia Recommendation Anesthesia recommendation: OPTIMIZED for anesthesia
--- NOTE | 2025-05-09 16:37 | PAT.ANESEVAL ---
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 When Was Last Pacemaker Check QUESTION #4 FULL TEXT: You/Your Family Experience fever (hyperthermia) with Anesthesia Last Oral Intake Last Oral intake: Last Oral Intake NPO since Meds taken in AM with sips of water? 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 installer Female No 05/05/25 08:30 HX of Motion Sickness No 05/05/25 08:30 HX of N/V After Surgery No 05/05/25 08:30 Non-Smoker Yes 05/05/25 08:30 Duration of Surgery greater Yes 05/05/25 08:30 than 60 minutes Number of Risk Factors 2 05/05/25 08:30 PONV Score Moderate Risk 05/05/25 08:30 Height & Weight Height & Weight: Anesthesia: Height & Weight Height 5 ft 8 in 04/26/25 09:38 Respiratory Assessment Respiratory Assessment - television antenna installer: Respiratory Tract Infection Hx - television antenna installer Hx Respiratory Tract Infection No 05/05/25 08:30 STOP Sleep Apnea STOP Sleep Apnea - television antenna installer: STOP Sleep Apnea - television antenna installer Hx Hypertension No 05/05/25 08:30 Hx Sleep Apnea No 05/05/25 08:30 CPAP BIPAP Do you snore loudly (louder No 05/05/25 08:30 than talking or can be heard Do you often feel tired/ No 05/05/25 08:30 fatigued/ sleepy during daytime? Has anyone observed you stop No 05/05/25 08:30 breathing during sleep? STOP Results Negative 05/05/25 08:30 QUESTION #5 FULL TEXT : Do you snore loudly (louder than talking or can be heard through closed doors)? 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 Specify any problems Hx of Preganancy in last 3 N/A 05/05/25 08:30 Months Nurse Filling Out Transfusion [facility]BU[facility] 05/05/25 08:30 & Questions: Date: 05/05/25 05/05/25 08:30 Time: 08:31 05/05/25 08:30 Patient unable to answer at this time (ie. 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: /Reproductive Hx- television antenna installer Hx Now No 05/05/25 08:30 Gestational Age (in weeks): EDC: Hx Hx Para Hx Section SAB No 05/05/25 08:30 Does the father of the baby or his family experience fever w Father of the baby Malignant Hypertension history comment [facility] Medical History (Updated 05/05/25 @ 08:34 by Linsey Hogue) Wears glasses Non-smoker History of deviated nasal septum Right inguinal hernia Home Medications ?Medication ?Instructions ?Recorded ?Last Taken ?Type acetaminophen 325 mg tablet (Pain 650 mg PO Q4H PRN fever or pain 04/10/25 04/09/25 History Relief (acetaminophen)) ibuprofen 200 mg tablet (Motrin IB) 400 mg PO Q8H PRN fever or pain 04/10/25 Unknown History Allergy/AdvReac Type Severity Reaction Status Date / Time No Known Allergies Allergy Verified 05/05/25 08:29 Surgical History (Updated 05/05/25 @ 08:34 by Linsey Hogue) History of laparoscopy History of hernia repair Social History Smoking Status: Never smoker Audit: Pertinent Findings HISTORY of Pertinent Findings History of Pertinent Findings: EKG Pertinent Findings EKG Perinent findings EKG on 05/08/2025. Await 05/08/25 16:33 official results. Pertinent Findings EKG Perinent findings: EKG 05/08/2025. Sinus bradycardia. Recommendation Anesthesia Recommendation Anesthesia recommendation: OPTIMIZED for anesthesia
[2025-05-15] VITALS (10 sets, daily range): BP systolic 123–160; BP diastolic 77–92; PULSE 51–96; RESP 16–20; TEMP 36.2–36.6; O2SAT 95–100; BMI 27.1
[2025-05-15] MEDS: Lactated Ringers 1,000 ML 15 ML IV ×2 (09:41→12:30)
--- NOTE | 2025-05-15 10:05 | HP.PCM_ITS ---
History and Physical Date of Admission: 05/15/25 Intake Vital Signs 02/17/2509:15 04/13/2513:27 04/26/2509:14 Height 5 ft 8 in 5 ft 8 in 5 ft 8 in Weight: 198 lb 4 oz 199 lb 201 lb BMI 30.1 30.2 30.5 BP 128/76 H 108/80 116/68 Blood Pressure Location Rt brachial Lt brachial Rt brachial Position Sitting Sitting Sitting Respiration 16 16 17 Pulse 74 73 70 Pulse Source Monitor Monitor Monitor Temp 98.6 F 97.9 F Temp Source Temporal Temporal Pulse Oximetry (%) 97 96 97 Oxygen Delivery Method room air room air room air Intake Visit Reasons: L INGUINAL HERNIA Chief Complaint: left inguinal hernia Is patient in pain?: No Allergies ondansetron (From Zofran) Adverse Reaction (Severe, Verified 04/26/25 09:15) dizziness, headache Medications ?Medication ?Instructions ?Recorded ?Confirmed ?Type multivitamin 1 ea PO DAILY 03/08/16 04/26/25 History blood-glucose meter (FreeStyle #1 ea 11/02/19 04/13/25 Rx Lite Meter kit) ferrous sulfate 325 mg (65 mg 325 mg PO QODAY 07/02/20 04/26/25 Histor y iron) tablet (FerrouSul) tamsulosin 0.4 mg capsule 0.4 mg PO QHS 03/13/21 04/26/25 History mecobalamin (vitamin B12) 1 tab PO TUTHSA 04/16/23 04/26/25 Histor y meclizine 25 mg tablet 25 mg PO BID PRN dizziness #20 tabs 02/04/13/25 Rx rosuvastatin 5 mg tablet 5 mg PO DAILY #90 tabs 11/30/24 04/26/25 Rx blood sugar diagnostic (Accu-Chek #100 ea 12/12/24 04/13/25 Rx Guide test strips) lancets (Accu-Chek Softclix #200 ea 12/12/24 04/13/25 Rx Lancets) cholecalciferol (vitamin D3) 50 2,000 unit PO DAILY 01/19/25 04/26/25 Hi story mcg (2,000 unit) tablet metformin 1,000 mg tablet 1,000 mg PO BID 3 months #180 tabs 01/1904/26/25 Rx blood-glucose sensor (FreeStyle #1 ea 04/13/25 04/13/25 Rx Katja 3 Plus Sensor device) blood-glucose,radio reporter,cont #1 ea 04/13/25 04/13/25 Rx (FreeStyle Katja 3 [place]) Have you fallen in the past year?: No [facility] Medical History (Updated 04/26/25 @ 09:[address] Abilio Cruz MD) Left groin pain Diabetes Localized swelling of right thumb Pain of right thumb Back pain Vertigo Dietary restriction Former smoker Shortness of breath on exertion History of pain when walking History of edema History of echocardiogram History of stress test Globus pharyngeus Neuropathy Wears glasses CPAP (continuous positive airway pressure) dependence Lumbar radiculopathy Kidney stone Penis cancer Type 2 diabetes mellitus Erectile dysfunction BPH (benign prostatic hyperplasia) Chronic headaches Hyperlipidemia Diverticular disease of colon Surgical History History of cataract surgery History of right inguinal hernia repair Hx of colonoscopy penisectomy History of lymph node biopsy History of tonsillectomy Family History Brother Hypertension Cancer Sister Cancer Mother Cancer Social History Smoking Status: Former smoker how long ago did patient quit smokin, 1pk/day second hand exposure: Yes alcohol intake: never substance use type: does not use caffeine: Yes Type: coffee frequency: 3-4 times per week HPI HPI HPI: Patient is a 75-year-old male here with left groin bulging. The patient had a right inguinal hernia repaired by Dr. Hamilton in the past laparoscopically. Patient noticed that the last month he has been having bulging on the left. He denies fevers or chills or nausea or vomiting. He says that it comes out when he coughs or sneezes. ROS General General: Yes fatigue; No weight change, appetite, colon cancer, breast cancer or weakness HEENT HEENT: Yes eye surgery; No difficulty swallowing, eye injury, swollen glands or hoarseness Endo Endocrine: Yes diabetes mellitus; No thyroid disease, thyroid cancer, Hair loss, heat intolerance or cold intolerance Skin Skin: No rash or changing moles Musc Musculoskeletal: Yes back problems and arthritis; No rheumatoid arthritis, gout or joint pain Cardio Cardiovascular: No murmur, pacemaker, heart disease, atrial fibrillation, high blood pressure, heart attack, heart stent, palpitations, shortness of breath with exertion or chest pain Psych Psychiatric: No depression, anxiety or hearing voices Resp Respiratory: Yes shortness of breath, Yes sleep apnea, No cough, No COPD, No ast hma, No emphysema and No wheezing Gastro Gastrointestinal: No abdominal pain, No nausea or vomiting, Yes diarrhea, No constipation, No blood in stool, No acid reflux, No hemorrhoids, No ulcers, No gallbladder problem and No black,tarry stools Soren Hematologic: No blood thinners, No blood disorders, No bleeding, No anemia and No blood clots Neuro Neurologic: No system reviewed and no additional complaints, except as documented, No as per HPI, No abnormal gait, No abnormal hearing, No abnormal movements, No abnormal speech, No behavioral changes, No burning sensations, No confusion, No convulsions, No disequilibrium, No dizziness, No localized weakness, No frequent falls, No headache(s), No lack of coordination, No loss of vision, No memory loss, Yes numbness, No other visual disturbances, No radicular pain, No restless legs, No sensory deficit, No syncope, Yes tingling, No tremor(s), No weakness and No other Exam Const General: cooperative Orientation: alert and oriented x3 [facility] Head: normal to inspection Neck Neck: normal visual inspection and full ROM Chest Chest palpation & inspection: normal inspection of the chest Resp Effort & Inspection: normal respiratory effort Auscultation: clear to auscultation bilaterally Cardio Rate: regular rate Rhythm: regular rhythm GI Inspection: non-distended Palpation: soft, hernia direct inguinal on the left and nontender Skin General: no rashes or lesions noted Neuro General: patient alert and patient oriented x3 Extrem General: full ROM Psych Appearance: grossly normal Mental Status: mental status grossly normal Assessment and Plan Assessment and Plan (1) Left inguinal hernia: Status: Acute Plan: Patient is having left groin discomfort and has a left inguinal hernia which seems to be direct. It is easily reducible. I discussed robotic assisted laparoscopic left inguinal hernia repair with mesh. I discussed the procedure in detail as well as the risks including but not limited to bleeding, infection, injury to surrounding organs such as the bowel, bladder, ureter, blood supply to the testicle. I also discussed the possibility of chronic groin pain. I also discussed mesh placement in detail. Patient questions were all answered and the patient agrees to proceed. Abilio Cruz MD Pager: [facility] [address] [place] [address], [address] [place] [address] Office: I have examined the patient and the H&P has been reviewed. There are no clinical changes since date of exam.
--- NOTE | 2025-05-15 10:25 | PCM.HP.BLA ---
History and Physical Date of Admission: 05/15/25 Intake Vital Signs 04/11/2512:53 04/26/2509:38 04/26/2509:39 Height 5 ft 8 in 5 ft 8 in Weight: 182 lb 6 oz BMI 27.7 BP 150/94 H 126/84 H Blood Pressure Location Rt brachial Lt brachial Position Sitting Sitting Respiration 18 Pulse 64 Pulse Source Monitor Temp 97.2 F L Temp Source Temporal Pulse Oximetry (%) 99 Oxygen Delivery Method room air Intake Visit Reasons: INGUINAL HERNIA DOS 04/10 Chief Complaint: discuss right inguinal hernia repair Accompanied by: Is patient in pain?: No Allergies No Known Allergies Allergy (Verified 04/26/25 09:40) Have you fallen in the past year?: No [facility] Medical History (Updated 04/26/25 @ 09:38 by Snehal Gonzales LPN) Right inguinal hernia Social History Smoking Status: Never smoker HPI HPI HPI: Patient is a 74-year-old male here after small bowel resection for incarceration and strangulation of a right inguinal hernia containing small bowel. The patient is doing well and reports he is tolerating a diet. His incision is healing well. Exam Const General: cooperative Orientation: alert and oriented x3 [facility] Head: normal to inspection Neck Neck: normal visual inspection and full ROM Chest Chest palpation & inspection: normal inspection of the chest Resp Effort & Inspection: normal respiratory effort Auscultation: clear to auscultation bilaterally Cardio Rate: regular rate Rhythm: regular rhythm GI Inspection: non-distended Palpation: soft and nontender Skin General: no rashes or lesions noted Neuro General: patient alert and patient oriented x3 Extrem General: full ROM Psych Appearance: grossly normal Mental Status: mental status grossly normal Assessment and Plan Assessment and Plan (1) Right inguinal hernia: Status: Acute Plan: 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 The small bowel segment was removed. Of note the patient's small bowel segment had some mucosal lymphoid tissue which is being tested for lymphoma. Patient is doing well after his surgery. His incision is clean dry and intact and his abdomen is soft and nontender. Plan for robotic assisted laparoscopic right inguinal hernia repair with mesh. I discussed explanting his old mesh as well. I discussed the procedure in detail as well as the risks including but not limited to bleeding, infection, injury to other organ such as the bowel, bladder, ureter, blood supply to the testicle. Patient understands the risks and is willing to proceed. Pathology still pending Abilio Cruz MD Pager: [facility] [address] [place] [address] [address] [place] [address] Office: I have examined the patient and the H&P has been reviewed. There are no clinical changes since date of exam.
--- NOTE | 2025-05-15 10:31 | PRE.ANES_ITS ---
ASA Classification* ASA Classification ASA Classification: 1 Assessment & Plan Anesthesia* Anesthesia Assessment Anesthesia Assessment: Discussed sedation and/or anesthesia options, risks, benefits, and alternatives with patient/parents/legal guardian/POA. Questions invited. The patient/parents/legal guardian/POA seems to understand and agrees to proceed with anesthesia plan. Reviewed the physical assessment, medical history, allergy history and patient home medications list prior to surgery/procedure/anesthetic and documented any changes. Performed airway and anesthesia risk assessments. Anesthesia Type Anesthesia Type: General History Source History Obtained from:: Patient and Chart Anesthesia Focused Assessment* Temperature: 97.8 F Pulse Rate: 51 Blood Pressure: 158/88 Respiratory Rate: 16 Pulse Ox: 100 Oxygen Delivery Method: Room Air Airway Assessment Mouth opens: >3 cm Mallampati Score: III Teeth Condition: Caps/Crowns (Patient has a couple crowns. They are tight.) Neck Range of motion (ROM): Full ROM Labs Anesthesia Preop lab: CBC WBC, (4.4-11.0) 7.6 K/mm3 04/14/25, 08:09 RBC, (4.6-6.2) 4.02 M/mm3 L 04/14/25, 08:09 Hgb, (13.0-16.5) 12.8 g/dL L 04/14/25, 08:09 Hct, (40-54) 37.0 % L 04/14/25, 08:09 Plt Count, (150-450) 200 K/mm3 04/14/25, 08:09 CHEMISTRY Potassium, (3.3-5.1) 3.9 mmol/L 04/14/25, 08:09 Sodium, (133-145) 138 mmol/L 04/14/25, 08:09 BUN, (4-19) 12 mg/dL 04/14/25, 08:09 Creatinine, (0.70-1.20) 0.68 mg/dL L 04/14/25, 08:09 Glucose, (70-99) 91 mg/dL 04/14/25, 08:09 COAG Pre-Assessment Diagnosis/Proposed Procedure Planned Operative Procedure(s): (R) Lap Robotic Inguinal Hernia w/mesh Anesthesia History 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 When Was Last Pacemaker Check QUESTION #4 FULL TEXT: You/Your Family Experience fever (hyperthermia) with Anesthesia Last Oral Intake Last Oral intake: Last Oral Intake NPO since 21:00 05/15/25 09:35 Meds taken in AM with sips of water? Meds patient instructed to take am of surgery PONV PONV - sales center associate: PONV - sales center associate Female No 05/05/25 08:30 HX of Motion Sickness No 05/05/25 08:30 HX of N/V After Surgery No 05/05/25 08:30 Non-Smoker Yes 05/05/25 08:30 Duration of Surgery greater Yes 05/05/25 08:30 than 60 minutes Number of Risk Factors 2 05/05/25 08:30 PONV Score Moderate Risk 05/05/25 08:30 Height & Weight Height & Weight: Anesthesia: Height & Weight Height 5 ft 8 in 05/15/25 09:35 Weight: 81 kg 05/15/25 09:35 Body Mass Index (BMI) 27.1 05/15/25 09:35 Respiratory Assessment Respiratory Assessment - sales center associate: Respiratory Tract Infection Hx - sales center associate Hx Respiratory Tract Infection No 05/05/25 08:30 STOP Sleep Apnea STOP Sleep Apnea - sales center associate: STOP Sleep Apnea - sales center associate Hx Hypertension No 05/05/25 08:30 Hx Sleep Apnea No 05/05/25 08:30 CPAP BIPAP Do you snore loudly (louder No 05/05/25 08:30 than talking or can be heard Do you often feel tired/ No 05/05/25 08:30 fatigued/ sleepy during daytime? Has anyone observed you stop No 05/05/25 08:30 breathing during sleep? STOP Results Negative 05/05/25 08:30 QUESTION #5 FULL TEXT : Do you snore loudly (louder than talking or can be heard through closed doors)? 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 Specify any problems Hx of Preganancy in last 3 N/A 05/05/25 08:30 Months Nurse Filling Out Transfusion NBUCHER 05/05/25 08:30 & Questions: Date: 05/05/25 05/05/25 08:30 Time: 08:31 05/05/25 08:30 Patient unable to answer at this time (ie. confused, unrespo /Reproduction History /Reproductive History - sales center associate: /Reproductive Hx- sales center associate Hx Now No 05/05/25 08:30 Gestational Age (in weeks): EDC: Hx Hx Para Hx Section SAB No 05/05/25 08:30 Does the father of the baby or his family experience fever w Father of the baby Malignant Hypertension history comment Active Medications Active Medications: Current Medications Generic Name Dose Route Start Last Admin Trade Name Freq PRN Reason Stop Dose Admin Lactated Ringer's 1,000 mls @ 15 mls/hr 05/15/25 09:30 05/15/25 09:41 IV 15 mls/hr .Q48H WOOD Administration PFSH Medical History (Updated 05/05/25 @ 08:34 by Linsey Hogue) Wears glasses Non-smoker History of deviated nasal septum Right inguinal hernia Home Medications ?Medication ?Instructions ?Recorded ?Last Taken ?Type acetaminophen 325 mg tablet (Pain 650 mg PO Q4H PRN fe marcin or pain 04/10/25 04/09/25 History Relief (acetaminophen)) ibuprofen 200 mg tablet (Motrin IB) 400 mg PO Q8H PRN fever or pain 04/10/25 Unknown History Allergy/AdvReac Type Severity Reaction Status Date / Time No Known Allergies Allergy Verified 05/15/25 09:34 Surgical History (Updated 05/05/25 @ 08:34 by Linsey Hogue) History of laparoscopy History of hernia repair Social History Smoking Status: Never smoker Review of Systems (Anesthesia) ROS Narrative System reviewed and no additional complaints, except as documented.
[2025-05-15] MEDS: Cefazolin 1 GM/5 ML Vial 2 GM IV (10:53)
[2025-05-15] MEDS: Lidocaine 1% (5 ml sdv) 5 ML Vial IV (10:53)
[2025-05-15] MEDS: fentaNYL 100 MCG/2 ML Ampul IV (11:14)
--- NOTE | 2025-05-15 12:00 | PCM.OPRPT ---
Operative Report (Standard) Operative Information Date of Procedure: 05/15/25 Pre-Operative Diagnosis: Recurrent right inguinal hernia Post-Operative Diagnosis: Recurrent right inguinal hernia Surgery/Procedure Performed: Exploratory laparoscopy hydro pneumatic tester: Yes Optician Apprentice: Iron William Tasks completed by assistant men's lacrosse coach: Opening & closing Type of Anesthesia: General/Regional RN Documented Start/Stop Times: Operation Date: 05/15/25 11:10 Case Time Into Pre-Op 05/15/25 09:27 Out of Pre-Op 05/15/25 10:40 Anesthesia Start 05/15/25 10:47 Into Room 05/15/25 10:47 Procedure Start 05/15/25 11:10 Procedure Start Time: 11:10 Procedure Stop Time: 12:05 Select all DRAINS/GRAFTS/IMPLANTS that apply: None Estimated Blood Loss: 10 Specimen collected: No Description of surgery: Patient was brought back to the operating room and general anesthesia was induced. The abdomen was prepped and draped in usual sterile fashion. A midline incision was made superior to his prior incision and the Veress needle was used to enter the abdomen. Of drop test was performed. The abdomen was then insufflated to 15 mmHg and the Veress needle was removed. A port was placed into the abdomen. It was inspected for injuries and there were none. Under direct visualization an 8 mm ports placed in the right lateral abdomen as well as the left lateral abdomen. Laparoscopic scissors were used to take down scar tissue to the anterior abdominal wall. The robot was then docked. Using electrocautery and blunt sharp dissection the bowel that was adherent to the right lower quadrant was taken down. Once I was able to see the hernia there was no hernia defect. The peritoneum was opened using electrocautery scissors and dissection was carried down to the hernia area. The old mesh was stuck to the epigastric vessel and unable to be taken down. The inflammation from his prior ischemic bowel seems to have scarred all of his inguinal canal down to the old mesh. There was no more hernia defect or hernia sac. At this point I elected to abort as the epigastric vessel was tightly adherent to the old mesh and there was no actual hernia left. The peritoneum was reapproximated using a running 3 oh V-Loc suture. The ports were removed and the abdomen was allowed to desufflate. The incisions were injected with local anesthetic and closed with interrupted 4-0 Monocryl sutures. Steri-Strips and bandages were applied and the patient was taken to PACU in stable condition. Surgical Findings: Obliteration of the right inguinal canal due to inflammation and scar tissue Complications Complications: No Admit VTE Documentation VTE Mechan Device Prophylaxis: SCD's
--- NOTE | 2025-05-15 12:03 | DCINST_ITS ---
Discharge Instructions Procedure Hernia Diet Discharge Diet: Light diet - advance as tolerated Activity Discharge Activity: May Not Drive (for 2-3 days or while taking narcotic pain meds.) and May Shower (with the bandage in place 1-2 days after surgery.) Lifting Restrictions: 20 pounds for 6 weeks. Additional Activity Instructions:: Climbing stairs is fine, walking is encouraged. Sitting in bed may be uncomfortable. Sitting up using your lateral muscles (sitting up sideways) is usually more comfortable. Do not drive, work heavy equipment of sign legal documents for 24 hours. Pain medications may cause nausea, you should typically eat light foods as you take your pain medications. Pain medications may also cause constipation. If you have difficulty with this, discuss with your doctor. Alternate ibuprofen and Tylenol for pain control, oxycodone for breakthrough pain. Dressing / Incision Call your doctor if your incision/area has: Continuous Slow Oozing, Sudden Increased Bleeding, Increased Pain/ Swelling, Increased Redness and Foul Smelling Discharge Call your doctor if you observe: Fever of 101 or Higher Suture Line Care: Avoid Pulling/Pushing and Avoid Pinching/Bending Remove Dressing in: 2 days (Remove clear bandages in 2 days, remove Steri-Strips in 7 to 10 days.) Cleanse incision/area with: Soap & Water Follow Up Care Please Follow Up With: Abilio Cruz MD When: Please call to schedule 2 week follow up appointment. [phone] Test Results: Test results from this visit will be discussed in further detail at your follow- up appointment, if applicable. Discharge Plan Admission Attending Provider: Abilio Cruz Primary Care Provider: Care Physician,Yesenia Primary Instructions Print Language: [place] Discharge Orders/Prescriptions Prescriptions: New oxycodone 5 mg tablet 5 - 10 mg PO Q6H PRN (Reason: pain) 5 Days Qty: 10 0RF No Action acetaminophen [Pain Relief (acetaminophen)] 325 mg tablet 650 mg PO Q4H PRN (Reason: fever or pain) ibuprofen [Motrin IB] 200 mg tablet 400 mg PO Q8H PRN (Reason: fever or pain) Other Ambulatory Orders: 12 Lead EKG (Routine) Location: None Selected Ordered By: Dr. Mike Scott Referrals / Follow Up: Care Physician,No Primary [Primary Care Provider, Medical] Disposition Disposition (needs filled in before D/C Order can be placed): Home, Self Care
--- NOTE | 2025-05-15 12:15 | PCM.POST.ANE ---
Anesthesia: Postop Eval I Current Vital Signs Temperature: 97.1 F Pulse Rate: 60 Blood Pressure: 160/90 Respiratory Rate: 20 Pulse Ox: 97 Oxygen Delivery Method: Room Air Assessment Airway patent: Yes Spontaneous unlabored respirations: Yes Mental status: Awake and Calm nausea: No Vomiting: No Anesthesia Complication: No Fluid Hydration Crystalloid volume administer (ml): 900 Total IV fluid infused: 900 Progress Note Anesthesia document: Postop Eval 1 completed: Yes
--- NOTE | 2025-05-15 15:03 | POSTOPAN2_ITS ---
Anesthesia Postop Eval I Sum Postop Eval Completion status Anesthesia document: Postop Eval 1 completed: Yes Anesthesia Postop Eval I Summary Anesthesia Postop Eval I Summary: Anesthesia Postop Eval I: Assessment Summary Airway patent Yes 05/15/25 12:15 PLATFORM [email or web address] Spontaneous unlabored Yes 05/15/25 12:15 PLATFORM BUILDER.[email or web address] respirations Mental status Awake,Calm 05/15/25 12:15 PLATFORM BUILDER.[email or web address] nausea No 05/15/25 12:15 PLATFORM BUILDER.[email or web address] Vomiting No 05/15/25 12:15 PLATFORM BUILDER.[email or web address] Anesthesia Postop Eval I: Fluid Summary Crystalloid volume administer 900 05/15/25 12:15 PLATFORM BUILDER.JDEF (ml) Colloids volume administered ( ml) Blood Product volume administered (ml) Total IV fluid infused 900 05/15/25 12:15 PLATFORM BUILDER.JDEF Anesthesia Postop Eval I: Summary Notes Anesthesia Complication No 05/15/25 12:15 PLATFORM BUILDER.[email or web address] Anesthesia Complication Comment: Post-operative progress note Anesthesia: Postop Eval II Evaluation Mental status: Awake and Calm Pain Level: 0 nausea: No Vomiting: No Complications Anesthesia Complication: No
--- NOTE | 2025-05-15 15:03 | PCM.POSTANE2 ---
Anesthesia Postop Eval I Sum Postop Eval Completion status Anesthesia document: Postop Eval 1 completed: Yes Anesthesia Postop Eval I Summary Anesthesia Postop Eval I Summary: Anesthesia Postop Eval I: Assessment Summary Airway patent Yes 05/15/25 12:15 GARLAND MACHINE OPERATOR.[email or web address] Spontaneous unlabored Yes 05/15/25 12:15 GARLAND MACHINE OPERATOR.JDEF respirations Mental status Awake,Calm 05/15/25 12:15 GARLAND MACHINE OPERATOR.JDEF nausea No 05/15/25 12:15 GARLAND MACHINE OPERATOR.JDEF Vomiting No 05/15/25 12:15 GARLAND MACHINE OPERATOR.JDEF Anesthesia Postop Eval I: Fluid Summary Crystalloid volume administer 900 05/15/25 12:15 GARLAND MACHINE OPERATOR.JDEF (ml) Colloids volume administered ( ml) Blood Product volume administered (ml) Total IV fluid infused 900 05/15/25 12:15 GARLAND MACHINE OPERATOR.JDEF Anesthesia Postop Eval I: Summary Notes Anesthesia Complication No 05/15/25 12:15 GARLAND MACHINE OPERATOR.JDEF Anesthesia Complication Comment: Post-operative progress note Anesthesia: Postop Eval II Evaluation Mental status: Awake and Calm Pain Level: 0 nausea: No Vomiting: No Complications Anesthesia Complication: No
== END 2025-05-15 14:17 | disposition home or self-care (01) ==
LOC: SDC 09:17 → AC 09:18
PROVIDERS: Referring Provider Surgery; Visit Provider Surgery
PROC: (CPT 49320; principal; 2025-05-15 10:50)
DX: K40.91 Unilateral inguinal hernia, without obstruction or gangrene, recurrent (principal); E11.40 Type 2 diabetes mellitus with diabetic neuropathy, unspecified; Z87.891 Personal history of nicotine dependence
CPT/HCPCS: 49320; 00790; 93005; J2405